=== PATIENT | male | born 1975 | race Caucasian/White ===

== ENCOUNTER 2017-01-27 08:00 | Outpatient (CLI) | payer BC, OTHER | END 2017-01-27 08:01 | disposition home or self-care (01) | DX: R10.9 Unspecified abdominal pain (principal) ==

== ENCOUNTER 2017-01-27 18:18 | Outpatient (CLI) | payer OTHER | END 2017-01-27 18:19 | disposition home or self-care (01) | DX: R10.9 Unspecified abdominal pain (principal) ==

== ENCOUNTER 2019-05-02 19:27 | Emergency (ER) | payer BC, OTHER ==
--- NOTE | 2019-05-02 20:05 | ED Physician Documentation ---
PD HPI DYSPNEA - Stated complaint Stated Complaint: SOA/LIGHTHEADED - Chief complaint Chief Complaint: Allergic Rx - History obtained from History obtained from: Patient - History of Present Illness Timing - onset: How many hours ago (1), Today Timing - onset during: Other (eating at Portuguese restaurant. Started to feel some lightheaded, chest tightness, and feeling oflump in throat/dyspnea. No feeling of tongue nor lip swelling, nor itching/rash. Had had milder similar episodes a few times in past few weeks, onl once timed with eating Portuguese food, but was similar character, less severe. Patient took Benadryl and is feeling slowly better.) Timing - details: Abrupt onset, Still present (but is lessening) Inciting event(s): Allergic rxn/anaphylaxis (he feels it is allergic reaction) Improved by: Benadryl Associated symptoms: Chest pain / discomfort. No: Fever, Cough, Wheezing, Palpitations Similar symptoms before: No diagnosis (similar symptoms briefly in the past few weeks. Brief.) Recently seen: Clinic (routine labs about 3 months ago at [facility]. Had been on BP med in past but not for 6 months or so.) Review of Systems Constitutional: denies: Fever, Chills Nose: denies: Rhinorrhea / runny nose, Congestion Throat: denies: Sore throat Cardiac: reports: Chest pain / pressure. denies: Palpitations, Pedal edema, Calf pain Respiratory: reports: Dyspnea. denies: Cough Musculoskeletal: denies: Neck pain, Back pain, Extremity swelling Neurologic: denies: Focal weakness, Numbness, Headache PD PAST MEDICAL HISTORY - Past Medical History Cardiovascular: Hypertension Respiratory: None Neuro: None Endocrine/Autoimmune: None - Present Medications Home Medications: Ambulatory Orders Medication Instructions Recorded Confirmed EPINEPHrine [Epinephrine] 0.3 mg IJ ONCE PRN #1 auto.injct 05/02/19 Losartan Potassium 100 mg PO DAILY #30 tablet 05/02/19 dexAMETHasone [Decadron] 4 mg PO DAILY #5 tablet 05/02/19 - Allergies Allergies/Adverse Reactions: Allergies Allergy/AdvReac Type Severity Reaction Status Date / Time codeine AdvReac Unknown Verified 05/02/19 19:39 PD ED PE NORMAL - Vitals Vital signs reviewed: Yes (BP elevated) - General General: Alert and oriented X 3, No acute distress, Well developed/nourished - HEENT HEENT: No: Pharynx benign (tongue and lips are okay. Minimal uvular edema. Normal voice and swallowing. ) - Neck Neck: Supple, no meningeal sign, No adenopathy - Cardiac Cardiac: RRR, No murmur - Respiratory Respiratory: Clear bilaterally - Back Back: No CVA TTP - Derm Derm: Normal color, Warm and dry - Extremities Extremities: No tenderness to palpate, No edema, No calf tenderness / cord - Neuro Neuro: Alert and oriented X 3, cushion mat maker 2-12 intact, No motor deficit, No sensory deficit, Normal speech Results - Vitals Vitals: Vital Signs - 24 hr 05/02/19 05/02/19 05/02/19 19:37 19:53 21:21 Temperature 36.6 C Heart Rate 85 86 88 Respiratory 19 18 18 Rate Blood Pressure 222/126 H 193/121 H 163/114 H O2 Saturation 97 96 98 Oxygen O2 Source Room air PD MEDICAL DECISION MAKING - ED course Complexity details: considered differential (The patient's symptoms do sound like an allergic reaction given the feeling of dyspnea and swelling in his throat. Is not clear what the food trigger was. He has had several's lesser episodes over the last few months. Is not on any blood pressure medicines. He is noted to have significantly high blood pressure here needs to be on antihypertensives. He used to be on blood pressure medicine but had discontinued them on his own a couple of years ago. He had not been to his primary care for a while. We can get baseline labs here. He did have some chest tightness and dyspnea with the episode so can get an EKG just to ensure no stress response or cardiac abnormality in conjunction with the elevated blood pressure.), d/w patient Departure - Departure Disposition: 01 Home, Self Care Clinical Impression: Allergic reaction Qualifiers: Encounter type: initial encounter Qualified Code(s): T78.40XA - Allergy, unspecified, initial encounter Hypertension Qualifiers: Hypertension type: unspecified Qualified Code(s): I10 - Essential (primary) hypertension Condition: Stable Record reviewed to determine appropriate education?: Yes Instructions: ED Allergic Reaction General Other, ED Hypertension Conf Out Of Control Follow-Up: Dorene Jack PA-C [Provider Admit Priv/Credential] - Prescriptions: dexAMETHasone [Decadron] 4 mg PO DAILY #5 tablet EPINEPHrine [Epinephrine] 0.3 mg IJ ONCE PRN #1 auto.injct PRN Reason: Anaphylaxis Losartan Potassium 100 mg PO DAILY #30 tablet Comments: This does sound like an allergic reaction. Hard to tell to what. We gave you a steroid dose here which should last for a day or 2. I would suggest using some steroids daily for the next few days if you have any prolonged reaction. Continue your daily antihistamine. Given the type of reaction you have had and increasing symptoms with them, it would make sense to have an EpiPen with you in case of a severe reaction. Still follow-up with an rural health consultant to determine the cause of the symptoms. Suggest following up with an rural health consultant. You could look for one in network or such through your insurance in the [facility]. Alternatively follow-up with your primary care and get referral that way. Food allergy testing might be appropriate to narrow down the cause. This would be since you have had several episodes similar to this. Your blood pressure is significantly elevated and given your history of hypertension, I would make sense to be back on an antihypertensive medicine. I can write a prescription for you for this and again follow-up with your primary care to trend how your blood pressure is doing. Discharge Date/Time: 05/02/19 21:33
[2019-05-02] MEDS ORDERED: DEXAMETHASONE 10 MG/ML VIAL PO STA (20:18)
[2019-05-02] MEDS ORDERED: CHERRY SYRUP 10 ML UDC PO ONE ×2 (20:18→21:37)
[2019-05-02] MEDS ORDERED: CETIRIZINE 10 MG TABLET PO STA (20:18)
[2019-05-02 21:22] VITALS: BP 163/114
[2019-05-02] MEDS ORDERED: CETIRIZINE 10 MG TABLET ONE (21:36)
[2019-05-02] MEDS ORDERED: DEXAMETHASONE 10 MG/ML VIAL ONE (21:36)
== END 2019-05-02 21:33 | disposition home or self-care (01) ==
LOC: ED 19:27
DX: T78.40XA Allergy, unspecified, initial encounter (principal); I10 Essential (primary) hypertension
CPT/HCPCS: 99283; 99284; A9270; 80053; 83690; 83880; 84484; 85025

== ENCOUNTER 2019-07-19 21:33 | Observation (INO) | payer BC ==
[2019-07-19] MEDS ORDERED: HYDROmorphone 1 MG/ML CARPUJECT IVP STA ×2 (21:47→22:27)
[2019-07-19] MEDS ORDERED: ONDANSETRON 4 MG/2 ML VIAL IVP STA (21:47)
--- NOTE | 2019-07-19 21:51 | ED Physician Documentation ---
<Osmar Balderrama - Last Filed: 07/19/19 21:50> PD HPI ABD PAIN - Stated complaint Stated Complaint: ADB PX - Chief complaint Chief Complaint: Abd Pain - History obtained from History obtained from: Patient - History of Present Illness Timing - onset: Today (44-year-old gentleman with history of hypertension and diverticulitis with rupture necessitating remote exploratory laparotomy presents with upper abdominal pain that started suddenly after eating chicken and rice tonight around 6:30 PM. Pain is severe, mildly better after vomiting. He has had similar milder episodes lately but they were much milder.) Review of Systems Ten Systems: 10 systems reviewed and negative Constitutional: denies: Fever, Chills Cardiac: denies: Chest pain / pressure, Palpitations Respiratory: denies: Dyspnea, Cough PD PAST MEDICAL HISTORY - Past Medical History Cardiovascular: Hypertension Respiratory: None Neuro: None Endocrine/Autoimmune: None - Present Medications Home Medications: Ambulatory Orders Medication Instructions Recorded Confirmed EPINEPHrine [Epinephrine] 0.3 mg IJ ONCE PRN #1 auto.injct 05/02/19 Losartan Potassium 100 mg PO DAILY #30 tablet 05/02/19 dexAMETHasone [Decadron] 4 mg PO DAILY #5 tablet 05/02/19 - Allergies Allergies/Adverse Reactions: Allergies Allergy/AdvReac Type Severity Reaction Status Date / Time codeine AdvReac Unknown Verified 07/19/19 21:35 - Social History Does the pt smoke?: No Smoking Status: Never smoker PD ED PE NORMAL - Vitals Vital signs reviewed: Yes - General General: Alert and oriented X 3, Other (Appears uncomfortable) - HEENT HEENT: PERRL, EOMI - Neck Neck: Supple, no meningeal sign, No bony TTP - Cardiac Cardiac: RRR, No murmur - Respiratory Respiratory: No respiratory distress, Clear bilaterally - Abdomen Abdomen: Normal bowel sounds, Other (Soft but with focal and significant tenderness in the right upper quadrant with positive Phelps sign) - Back Back: No CVA TTP, No spinal TTP - Derm Derm: Normal color, Warm and dry, No rash - Extremities Extremities: No deformity, No tenderness to palpate - Neuro Neuro: Alert and oriented X 3, No motor deficit, No sensory deficit, Normal speech Departure - Departure Disposition: ED Transfer to [facility] Clinical Impression: Cholecystitis Condition: Good <Rosa Lr - Last Filed: 07/20/19 00:43> Results - Vitals Vitals: Vital Signs - 24 hr 07/19/19 07/19/19 07/19/19 21:35 22:38 23:03 Temperature 36.6 C Heart Rate 77 72 70 Respiratory 16 16 18 Rate Blood Pressure 189/90 H 164/106 H O2 Saturation 98 100 98 07/19/19 07/20/19 23:46 00:32 Temperature Heart Rate 80 79 Respiratory 17 16 Rate Blood Pressure 139/91 H 141/97 H O2 Saturation 97 95 Oxygen O2 Source Room air - Labs Labs: Laboratory Tests 07/19/19 07/19/19 22:12 22:12 WBC 11.5 H RBC 5.09 Hgb 15.9 Hct 46.7 MCV 91.7 MCH 31.2 H MCHC 34.0 RDW 12.7 Plt Count 334 MPV 11.0 Neut # (Auto) 7.1 H Lymph # (Auto) 3.0 Avery # (Auto) 1.0 Eos # (Auto) 0.1 Baso # (Auto) 0.1 Absolute Nucleated RBC 0.00 Nucleated RBC % 0.0 Sodium 141 Potassium 3.9 Chloride 102 Carbon Dioxide 28 Anion Gap 11.0 BUN 15 Creatinine 0.9 Estimated GFR (MDRD) 91 Glucose 152 H Calcium 9.7 Total Bilirubin 0.5 AST 24 ALT 30 Alkaline Phosphatase 85 Total Protein 8.2 Albumin 4.3 Globulin 3.8 Albumin/Globulin Ratio 1.1 Lipase 34 PD MEDICAL DECISION MAKING - ED course Complexity details: reviewed results, re-evaluated patient, d/w patient, d/w family, d/w it web development consultant ED course: Patient's white blood cell count was a little elevated. Liver enzymes are normal and a normal lipase. Ultrasound confirms cholecystitis with a normal common bile duct but With gallbladder wall thickening. Patient still has mini mal discomfort with palpation in the right upper quadrant after Toradol and Dilaudid. Case was discussed with Dr. Cain who is on-call for surgery. She requested the patient received Zosyn IV and will be in the morning to perform cholecystectomy. 0041: Within minutes of starting the Zosyn drip the patient started itching and broke out in hives on his face and back. The drip was stopped immediately and he was given Benadryl 25 mg IV. His lungs are clear and he has no swelling in his throat or mouth. Denies difficulty breathing. He will be given Cipro 500 mg plus Flagyl 500 mg IV.
[2019-07-19 22:25] LABS: BASOPHILS # (AUTO) 0.1 10^3/uL (0.0-0.1); BASOPHILS % (AUTO) 0.8 %; EOSINOPHILS # (AUTO) 0.1 10^3/uL (0.0-0.7); EOSINOPHILS % (AUTO) 0.8 %; HGB - HEMOGLOBIN 15.9 g/dL (14.0-18.0); LYMPHOCYTES % (AUTO) 26.2 %; MEAN CORPUSCULAR HEMOGLOBIN 31.2 pg (27.0-31.0); MEAN CORPUSCULAR VOLUME 91.7 fL (80.0-94.0); MONOCYTES % (AUTO) 8.6 %; NEUTROPHILS # (AUTO) 7.1 10^3/uL (1.5-6.6); NEUTROPHILS % (AUTO) 62.3 %; PLT - PLATELET COUNT 334 10^3/uL (130-450); RED BLOOD COUNT 5.09 10^6/uL (4.70-6.10); RED CELL DISTRIBUTION WIDTH 12.7 % (12.0-15.0); WHITE BLOOD COUNT 11.5 x10^3/uL (4.8-10.8)
[2019-07-19] MEDS ORDERED: KETOROLAC 30 MG/ML VIAL IVP STA (22:27)
[2019-07-19 22:47] LABS: ALBUMIN 4.3 g/dL (3.2-5.5); ALBUMIN/GLOBULIN RATIO 1.1 (1.0-2.2); BILIRUBIN,TOTAL 0.5 mg/dL (0.2-1.0); CALCIUM 9.7 mg/dL (8.5-10.3); CREATININE 0.9 mg/dL (0.6-1.2); TOTAL PROTEIN 8.2 g/dL (6.7-8.2)
--- NOTE | 2019-07-19 23:46 | Ultrasound Report ---
Reason: RUQ TTP Procedure Date: 07/19/2019 Accession Number: [id number] / [id number] Procedure: US - Abdomen Limited CPT Code: FULL RESULT: EXAM: ABDOMEN ULTRASOUND LIMITED, RUQ EXAM DATE: 07/19/2019 11:00 PM. CLINICAL HISTORY: RUQ TTP. COMPARISON: None. TECHNIQUE: Real-time scanning was performed with static images obtained. Image quality is degraded by habitus and bowel gas. FINDINGS: Liver: Liver is echogenic, suggestive of infiltration. It measures 18.6 cm. Main portal vein flow: Hepatopetal. Gallbladder: Cholelithiasis. Gallbladder wall thickening, mild, to 3 mm. No definite pericholecystic fluid appreciated. Biliary System: CBD measures 4 mm. No intrahepatic or extrahepatic ductal dilatation. Other: None. IMPRESSION: Cholelithiasis, with mild gallbladder wall thickening, suggestive of acute cholecystitis. Fatty infiltration of the liver. RADIA
[2019-07-20] MEDS ORDERED: PIPERACILLIN/TAZOBACTAM 3.375 GM in SODIUM CHLORIDE 0.9% MINIBAG 100 ML IV STA (00:01)
[2019-07-20] MEDS ORDERED: DEXTROSE 5%-0.45% NACL 1,000 ML IV ONE (00:03)
--- NOTE | 2019-07-20 00:03 | ED Physician Documentation ---
ED Addendum - Addendum Addendum: 07/20/19 00:01 Care was turned over by Dr. Vail. Patient's white blood cell counts mildly elevated and the ultrasound confirms Yani cystitis with gallbladder wall thickening normal common bile duct diameter. He is feeling much better with just minimal tenderness now with palpation in the right upper quadrant. Case was discussed with Dr. Mcknight who is on for surgery and she will be in in the morning to perform cholecystectomy. Patient was given Zosyn IV and remains n.p.o.
[2019-07-20] MEDS ORDERED: diphenhydrAMINE INJ 50 MG/ML VIAL ONE (00:37)
[2019-07-20] MEDS ORDERED: CIPROFLOXACIN 400 MG/200 ML 200 ML IV ONE ×2 (00:42→10:29)
[2019-07-20] MEDS ORDERED: metroNIDAZOLE 500 MG/100 ML 500 MG/100 ML BAG IV ONE (00:43)
[2019-07-20] MEDS ORDERED: HYDROmorphone 1 MG/ML CARPUJECT IVP STA ×2 (04:10→08:42)
[2019-07-20] MEDS ORDERED: levoFLOXacin 750 MG/150 ML 750 MG/150 ML BAG IV SCH (06:00)
[2019-07-20] MEDS ORDERED: SODIUM CHLORIDE 0.9% 1,000 ML IV ONE (08:43)
--- NOTE | 2019-07-20 09:36 | ANESTHESIA ---
Pre-Anesthesia VS, & Labs - Diagnosis cholecystitis - Procedure lap rob Vital Signs: Temp Pulse Resp BP Pulse Ox 36.6 C 74 18 143/101 H 98 07/19/19 21:35 07/20/19 08:36 07/20/19 08:36 07/20/19 08:36 07/20/19 08:36 Height 6 ft 1 in Weight (kg) 137.6 kg Body Mass Index 40.0 - NPO >8 hours - Lab Results Current Lab Results: Laboratory Tests 07/19/19 22:12: Sodium 141, Potassium 3.9, Chloride 102, Carbon Dioxide 28, Anion Gap 11.0, BUN 15, Creatinine 0.9, Estimated GFR (MDRD) 91, Glucose 152 H, Calcium 9.7, Total Bilirubin 0.5, AST 24, ALT 30, Alkaline Phosphatase 85, Total Protein 8.2, Albumin 4.3, Globulin 3.8, Albumin/Globulin Ratio 1.1, Lipase 34 07/19/19 22:12: WBC 11.5 H, RBC 5.09, Hgb 15.9, Hct 46.7, MCV 91.7, MCH 31.2 H, MCHC 34.0, RDW 12.7, Plt Count 334, MPV 11.0, Neut # (Auto) 7.1 H, Lymph # (Auto) 3.0, Ellis # (Auto) 1.0, Eos # (Auto) 0.1, Baso # (Auto) 0.1, Absolute Nucleated RBC 0.00, Nucleated RBC % 0.0 Lab results reviewed: Yes Fish Bones: 07/19/19 22:12 07/19/19 22:12 Home Medications and Allergies Active Medications Dextrose/Sodium Chloride (D5.45ns) 1,000 mls @ 100 mls/hr IV .Q10H ONE Stop: 07/20/19 10:02 Last Admin: 07/20/19 04:21 Dose: 100 mls/hr Sodium Chloride (Normal Saline 0.9%) 1,000 mls @ 250 mls/hr IV .Q4H ONE Stop: 07/20/19 12:42 Allergies/Adverse Reactions: Allergies Allergy/AdvReac Type Severity Reaction Status Date / Time piperacillin [From Zosyn] Allergy Hives Verified 07/20/19 05:33 tazobactam [From Zosyn] Allergy Hives Verified 07/20/19 05:33 codeine AdvReac Unknown Verified 07/19/19 21:35 Anes History & Medical History - Anesthetic History Anesthesia Complications: reports: No previous complications - Medical History Cardiovascular: reports: Hypertension, High cholesterol Pulmonary: reports: None, Asthma Gastrointestinal: reports: Diverticulitis Neuro: reports: None Endocrine/Autoimmune: reports: None Smoking Status: Former smoker Exam General: Alert Mouth Opening: Greater than 4 Fingerbreadths Neck Mobility: Normal Mallampati classification: II Thyromental Distance: 4-6 cm Respiratory: Lungs clear Cardiovascular: Regular rate Plan Anesthesia Type: General Consent for Procedure(s) Verified and Reviewed: Yes Code Status: Attempt Resuscitation ASA classification: 3-Severe systemic disease Is this case an emergency?: Yes
[2019-07-20] MEDS ORDERED: BUPIVACAINE 0.5% PF 10 ML VIAL ONE (09:37)
[2019-07-20] MEDS ORDERED: LIDOCAINE MPF 1%-EPI 1:200000 30 ML VIAL ONE (09:37)
[2019-07-20] MEDS ORDERED: PROPOFOL 1000 MG/100 ML 100 ML IV ONE ×2 (09:59→10:22)
[2019-07-20] MEDS ORDERED: ROCURONIUM 50 MG/5 ML VIAL IVP ONE (10:22)
[2019-07-20] MEDS ORDERED: LABETALOL 5 MG/1 ML 20 ML MDV IVP ONE (10:22)
[2019-07-20] MEDS ORDERED: fentaNYL 250 MCG/5 ML VIAL IVP ONE (10:22)
[2019-07-20] MEDS ORDERED: LACTATED RINGERS 1,000 ML IV ONE ×3 (10:22→14:47)
[2019-07-20] MEDS ORDERED: DEXAMETHASONE 4 MG/ML VIAL IVP ONE (10:22)
[2019-07-20] MEDS ORDERED: ONDANSETRON 4 MG/2 ML VIAL IVP ONE (10:22)
[2019-07-20] MEDS ORDERED: GLYCOPYRROLATE 1 MG/5 ML VIAL IVP ONE (10:22)
[2019-07-20] MEDS ORDERED: MIDAZOLAM 2 MG/2 ML VIAL IVP ONE (10:22)
[2019-07-20] MEDS ORDERED: NEOSTIGMINE 1 MG/1 ML 10 ML MDV IVP ONE (10:22)
[2019-07-20] MEDS ORDERED: PROPOFOL 200 MG/20 ML VIAL IVP ONE (10:22)
[2019-07-20] MEDS ORDERED: metroNIDAZOLE 500 MG/100 ML 500 MG/100 ML BAG ONE (10:30)
--- NOTE | 2019-07-20 10:33 | HISTORY & PHYSICAL EXAMINATION ---
HPI - Admitted From Admitted from: ED - History Obtained From Records Reviewed: RN notes reviewed History obtained from: Patient, Family Exam limitations: No limitations - History of Present Illness Severity at the worst: reports: Mild Pain Quality: reports: Dull, Aching Context-Pain started w/: reports: Eating Timing: reports: Gradual onset Duration: reports: Days: (5) Improved with: reports: Nothing Worsened by: reports: Eating Associated symptoms: reports: Nausea HPI Comment/Other: Gentleman presented to the ED with several days of dull right upper quadrant pain that became acutely worse after eating chicken and rice last evening. He says he felt discomfort there all week but didn't worry much about it. He was seen in the ED and diagnosed with acute cholecystitis. He has received antibiotics over night and a new PCN allergy was discovered. Currently he is without pain and a little hungry. PMH/PSH - Past Medical History Cardiovascular: positive: Hypertension, High cholesterol Respiratory: positive: None, Asthma Neuro: positive: None Endocrine/Autoimmune: positive: None GI: positive: Diverticulitis MRSA Hx?: No Social & Family Hx - Social History Does the pt smoke?: No Smoking Status: Former smoker Meds/Allgy - Home Medications Home Medications: Ambulatory Orders Medication Instructions Recorded Confirmed EPINEPHrine [Epinephrine] 0.3 mg IJ ONCE PRN #1 auto.injct 05/02/19 Losartan Potassium 100 mg PO DAILY #30 tablet 05/02/19 dexAMETHasone [Decadron] 4 mg PO DAILY #5 tablet 05/02/19 - Allergies Allergies/Adverse Reactions: Allergies Allergy/AdvReac Type Severity Reaction Status Date / Time piperacillin [From Zosyn] Allergy Hives Verified 07/20/19 05:33 tazobactam [From Zosyn] Allergy Hives Verified 07/20/19 05:33 codeine AdvReac Unknown Verified 07/19/19 21:35 Review of Systems - Constitutional Constitutional: denies: Fever, Chills - Eyes Eyes: denies: Pain, Irritation, Amaurosis, Blurred vision - Ears, Nose & Throat Ears, Nose & Throat: denies: Ear pain, Hearing loss, Hearing aids, Tinnitus, Vertigo - Cardiovascular Cariovascular: denies: Irregular heart rate, Palpitations, Chest pain, Edema, Lightheadedness, Syncope - Respiratory Respiratory: denies: Cough, Wheezing - Gastrointestinal Gastrointestinal: reports: Abdominal pain. denies: Abdominal distention, Cons tipation, Diarrhea, Black stools, Bloody stools - Genitourinary Genitourinary: denies: Dysuria, Frequency, Urgency - Musculoskeletal Musculoskeletal: denies: Muscle pain - Integumentary Integumentary: denies: Rash - Neurological Neurological: denies: General weakness, Focal weakness Exam - Vital Signs Reviewed Vital Signs: Yes Vital Signs: Vital Signs x48h Pulse Resp BP Pulse Ox 07/20/19 08:36 74 18 143/101 H 98 07/20/19 05:39 66 16 128/89 H 96 07/20/19 03:07 59 L 16 122/67 96 - Physical Exam General Appearance: positive: No acute distress, Alert Eyes Bilateral: positive: Normal inspection, PERRL, EOMI ENT: positive: ENT inspection nml, Pharynx nml, No signs of dehydration Neck: positive: Nml inspection, Thyroid nml, No JVD, Trachea midline. negative: Thyromegaly, Lymphadenopathy (R), Lymphadenopathy (L) Respiratory: positive: Chest non-tender, No respiratory distress, Breath sounds nml Cardiovascular: positive: Regular rate & rhythm, No murmur, No gallop Peripheral Pulses: positive: 0 Abdomen: positive: Non-tender, Nml bowel sounds, No distention, Tenderness (Mini mal right upper quadrant tenderness to palpation), Other (Very large midline incision that has healed by secondary intention) Back: positive: Nml inspection. negative: CVA tenderness (R), CVA tenderness (L) Skin: positive: Color nml, No rash, Warm, Dry Extremities: positive: Non-tender, Nml appearance, No pedal edema Neurologic/Psychiatric: positive: Oriented x3, CN's nml (2-12) Results - Lab Results Fish Bones: 07/19/19 22:12 07/19/19 22:12 Other Lab Results: Lab Results x24hrs 07/19/19 07/19/19 Range/Units 22:12 22:12 WBC 11.5 H (4.8-10.8) x10^3/uL RBC 5.09 (4.70-6.10) 10^6/uL Hgb 15.9 (14.0-18.0) g/dL Hct 46.7 (42.0-52.0) % MCV 91.7 (80.0-94.0) fL MCH 31.2 H (27.0-31.0) pg MCHC 34.0 (32.0-36.0) g/dL RDW 12.7 (12.0-15.0) % Plt Count 334 (130-450) 10^3/uL MPV 11.0 (7.4-11.4) fL Neut # (Auto) 7.1 H (1.5-6.6) 10^3/uL Lymph # (Auto) 3.0 (1.5-3.5) 10^3/uL Harper # (Auto) 1.0 (0.0-1.0) 10^3/uL Eos # (Auto) 0.1 (0.0-0.7) 10^3/uL Baso # (Auto) 0.1 (0.0-0.1) 10^3/uL Absolute Nucleated RBC 0.00 x10^3/uL Nucleated RBC % 0.0 /100WBC Sodium 141 (135-145) mmol/L Potassium 3.9 (3.5-5.0) mmol/L Chloride 102 (101-111) mmol/L Carbon Dioxide 28 (21-32) mmol/L Anion Gap 11.0 (6-13) BUN 15 (6-20) mg/dL Creatinine 0.9 (0.6-1.2) mg/dL Estimated GFR (MDRD) 91 (>89) Glucose 152 H (70-100) mg/dL Calcium 9.7 (8.5-10.3) mg/dL Total Bilirubin 0.5 (0.2-1.0) mg/dL AST 24 (10-42) IU/L ALT 30 (10-60) IU/L Alkaline Phosphatase 85 (42-121) IU/L Total Protein 8.2 (6.7-8.2) g/dL Albumin 4.3 (3.2-5.5) g/dL Globulin 3.8 (2.1-4.2) g/dL Albumin/Globulin Ratio 1.1 (1.0-2.2) Lipase 34 (22-51) U/L - Diagnostic Imaging Results Diagnostic Imaging Results: positive: Prelim report reviewed, Read contemporaneously Diagnostic Imaging Results Comments: Mild acute cholecystitis Impression/Plan - Problem List Problem List: Acute cholecystitis - Pain is under control currently. We have discussed the risks and benefits of cholecystectomy. The patient understands that he has a greater than average risk of complications or conversion to an open procedure due to his history of peritonitis and open laparotomy. He has expressed an und erstanding of this and a desire to have the procedure. We will begin with a laparoscopic approach and hope to complete it that way.
--- NOTE | 2019-07-20 11:45 | OPERATIVE REPORT ---
Operative Report - General Planned Procedure: Cholecystectomy - Laparoscopic or Open Pre-Op Diagnosis: Acute cholecystitis Procedure Performed: Laparoscopic cholecystectomy Post Op Diagnosis: Acute cholecystitis - Procedure Note Primary Surgeon: Payton Anesthesia Provider: DEMETRIO العلي Anesthesia Technique: General ET tube, Local Pathology: Gall bladder in formalin to pathology IV Fluids (mL): 700 Estimated Blood Loss (mL): 100 Drain/Tube Type: Yousuf drain (19 Australian in the gall bladder fossa) Findings: Acute cholecystitis with vidal purulence from the gall bladder Complications: None apparent - Other Other Information/Narrative: After obtaining informed consent, the patient is brought to the operating room and placed in the supine position on the operating table. Following successful induction of general endotracheal anesthesia, appropriate padding of all bony prominences, and placement of appropriate monitors, the abdomen is prepped and drapped in the standard surgical fashion.A timeout was held per SCOAP protocol. All elements of the surgical safety checklist were followed before, during, and after the procedure. Due to the presence of a large midline incision that healed by secondary intention, I elected to make my incision to the left of the umbilicus in a undisturbed portion of the abdomen. This area was infiltrated with local an esthetic and incision was created and carried down through the skin and subcutaneous tissue to the fascia below. A Liberal clamp was used to grasp the fascia and 2-0 Vicryl retention sutures were placed on either side of the planned incision. A 1 cm incision was then created in the fascia and this was carried bluntly through the into the peritoneum.A 10 mm blunt Brush balloon trocar was placed in the abdominal cavity and it was insufflated to 15 mmHg pressure.The patient was now placed in reverse Trendelenburg position with the left side rotated toward the floor.We were fortunately able to see through a small window in the intra-abdominal adhesive process. We were able to visualize the gallbladder as well as enough free peritoneal surface to perform the operation. An area was localized in the right upper quadrant and an incision created for placement of a 5 mm trocar. A second was placed just medial and inferior to the first. We were able to identify a free spot in the upper midli ne where we could place a third trocar. The fundus of the gallbladder was grasped and elevated up over the liver. There was significant omental adhesions to the body of the gallbladder. These were taken down bluntly. Significant nonspecific ooze was noted from every raw surface. The gallbladder itself was noted to be discolored to a tariq-green appearance, very edematous and thin- walled. We were able to identify the cholecysto hepatoduodenal ligament and then were carefully able to identify the cystic duct as it came directly off of the body of the gallbladder. Due to the inflammatory process in the ana cristina hepatis, as well as the generalized issues, no attempt was made to dissect deeper into the ana cristina to get a clear view of the common duct. We stayed up on the gallbladder itself and avoided stirring up any difficulty in the surrounding area. The cystic duct was clipped 3 times proximally once distally and divided. The artery was identified just superior and medial to the duct and it was clipped once proximally once distally and divided. The gallbladder was then liberated from its bed in the liver using Bovie cautery. Once it was completely free, it was placed in an Endo Catch device and removed via the umbilical port. The abdomen was irrigated with 2 L of warm saline solution and aspirated free of all fluid and particulate matter.Due to the generalized issues as well as the degree of contamination of the gallbladder, I elected to place a 19 Australian Yousuf drain in the gallbladder fossa. This was brought out in the right upper quadrant and sewn into place. The wounds were then all checked for hemostasis. The trochars were removed under direct vision and the abdomen desufflated. The largest incision lateral to the umbilicus was closed with 0 Vicryl retention s utures in the fascia and Monocryl was placed in all the skin incisions. All sponge, needle, and instrument counts were correct at the conclusion of the case. The patient was allowed to awaken from anesthesia without difficulty and taken to the postanesthesia care unit in good condition.
[2019-07-20] MEDS ORDERED: ONDANSETRON 4 MG/2 ML VIAL IVP PRN (11:53)
[2019-07-20] MEDS ORDERED: oxyCODONE 5 MG TABLET PO PRN (11:53)
[2019-07-20] MEDS ORDERED: ACETAMINOPHEN 325 MG TABLET PO PRN (11:53)
[2019-07-20] MEDS: HYDROmorphone 1 MG/ML CARPUJECT ONE ×2 (12:33→12:46)
[2019-07-20] MEDS ORDERED: ACETAMINOPHEN 1,000 MG/100 ML 100 ML IV ONE (13:11)
[2019-07-20] MEDS ORDERED: ACETAMINOPHEN 500 MG TABLET PO PRN (14:34)
[2019-07-20] MEDS: metroNIDAZOLE 500 MG/100 ML 500 MG/100 ML BAG IV SCH ×2 (14:44→22:10)
[2019-07-20] MEDS: LACTATED RINGERS 1,000 ML IV SCH ×2 (14:44→18:58)
[2019-07-20] MEDS: PANTOPRAZOLE 40 MG VIAL IVP SCH (14:44)
[2019-07-20] MEDS: SODIUM CHLORIDE FLUSH 0.9% 10 ML SYRINGE IVP PRN (14:48)
[2019-07-20] MEDS: HYDROmorphone 0.5 MG/0.5 ML SYRINGE IVP PRN ×5 (14:58→23:53)
[2019-07-20] MEDS: SODIUM CHLORIDE FLUSH 0.9% 10 ML SYRINGE IVP SCH (15:30)
[2019-07-20] MEDS ORDERED: LIDOCAINE JELLY 2% 5 ML TUBE TOP ONE (18:28)
[2019-07-20] MEDS ORDERED: TAMSULOSIN 0.4 MG CAPSULE PO SCH (18:30)
[2019-07-21] MEDS: SODIUM CHLORIDE FLUSH 0.9% 10 ML SYRINGE IVP SCH ×3 (00:19→18:04)
[2019-07-21] MEDS: LACTATED RINGERS 1,000 ML IV SCH (04:27)
[2019-07-21] MEDS: HYDROmorphone 0.5 MG/0.5 ML SYRINGE IVP PRN ×6 (04:28→18:11)
[2019-07-21] MEDS: metroNIDAZOLE 500 MG/100 ML 500 MG/100 ML BAG IV SCH ×3 (05:16→21:02)
[2019-07-21 05:55] LABS: BASOPHILS % (AUTO) 0.3 %; EOSINOPHILS % (AUTO) 0.2 %; HGB - HEMOGLOBIN 12.9 g/dL (14.0-18.0); LYMPHOCYTES # (AUTO) 2.5 10^3/uL (1.5-3.5); LYMPHOCYTES % (AUTO) 19.1 %; MEAN CORPUSCULAR HEMOGLOBIN 30.4 pg (27.0-31.0); MEAN CORPUSCULAR HGB CONC 32.6 g/dL (32.0-36.0); MEAN CORPUSCULAR VOLUME 93.2 fL (80.0-94.0); MEAN PLATELET VOLUME 11.3 fL (7.4-11.4); MONOCYTES # (AUTO) 1.2 10^3/uL (0.0-1.0); MONOCYTES % (AUTO) 8.9 %; NEUTROPHILS # (AUTO) 9.4 10^3/uL (1.5-6.6); NEUTROPHILS % (AUTO) 70.6 %; PLT - PLATELET COUNT 265 10^3/uL (130-450); RED BLOOD COUNT 4.25 10^6/uL (4.70-6.10); RED CELL DISTRIBUTION WIDTH 13.2 % (12.0-15.0); WHITE BLOOD COUNT 13.3 x10^3/uL (4.8-10.8)
[2019-07-21 06:11] LABS: ALBUMIN 3.5 g/dL (3.2-5.5); ALBUMIN/GLOBULIN RATIO 1.3 (1.0-2.2); BILIRUBIN,TOTAL 0.9 mg/dL (0.2-1.0); CALCIUM 8.5 mg/dL (8.5-10.3); CREATININE 0.7 mg/dL (0.6-1.2); TOTAL PROTEIN 6.2 g/dL (6.7-8.2)
[2019-07-21] MEDS: PANTOPRAZOLE 40 MG VIAL IVP SCH (06:21)
[2019-07-21] MEDS: levoFLOXacin 750 MG/150 ML 750 MG/150 ML BAG IV SCH (06:22)
[2019-07-21] MEDS: SODIUM CHLORIDE FLUSH 0.9% 10 ML SYRINGE IVP PRN ×5 (10:44→23:12)
[2019-07-21] MEDS ORDERED: TAMSULOSIN 0.4 MG CAPSULE PO SCH (13:00)
--- NOTE | 2019-07-21 17:37 | PROVIDER PROGRESS NOTE ---
Subjective - General Admit Date: 07/20/19 Procedure Date: 07/20/19 Post Op Days: 1 Procedure Performed: Laparoscopic cholecystectomy - Review of Systems Wound/Incisions: positive: Healing well Drain Type: Yousuf Drain Output Description: serous General: positive: Fatigue. negative: Fever HEENT: positive: No symptoms Pulmonary: positive: No symptoms Cardiovascular: positive: No symptoms, Other (Feels gas and bowel activity but has not had a bowel movement) Gastrointestinal: positive: Abdominal pain. negative: Flatus Genitourinary: positive: Retention (Catheter in place) Musculoskeletal: positive: No symptoms Skin: positive: No symptoms Objective - Patient Data Vital Signs: Vital Signs x48h Temp Pulse Resp BP Pulse Ox 07/21/19 15:44 36.4 C L 71 20 148/81 H 94 07/21/19 14:00 36.5 C 74 20 145/80 H 95 Weight: Weight 07/19/19 07/20/19 07/21/19 23:59 23:59 23:59 Weight (kg) 137.6 kg 137.6 kg Intake & Output: Intake and Output Totals x24h 07/19/19 07/20/19 07/21/19 23:59 23:59 23:59 Intake Total 2476.666 2048.333 Output Total 1340 4698 Balance 1136.666 -2649.667 - Lab Results Lab Results: 07/21/19 05:15 07/21/19 05:15 Other Lab Results: Lab Results x24hrs 07/21/19 07/21/19 Range/Units 05:15 05:15 WBC 13.3 H (4.8-10.8) x10^3/uL RBC 4.25 L (4.70-6.10) 10^6/uL Hgb 12.9 L (14.0-18.0) g/dL Hct 39.6 L (42.0-52.0) % MCV 93.2 (80.0-94.0) fL MCH 30.4 (27.0-31.0) pg MCHC 32.6 (32.0-36.0) g/dL RDW 13.2 (12.0-15.0) % Plt Count 265 (130-450) 10^3/uL MPV 11.3 (7.4-11.4) fL Neut # (Auto) 9.4 H (1.5-6.6) 10^3/uL Lymph # (Auto) 2.5 (1.5-3.5) 10^3/uL [place] # (Auto) 1.2 H (0.0-1.0) 10^3/uL Eos # (Auto) 0.0 (0.0-0.7) 10^3/uL Baso # (Auto) 0.0 (0.0-0.1) 10^3/uL Absolute Nucleated RBC 0.00 x10^3/uL Nucleated RBC % 0.0 /100WBC Sodium 137 (135-145) mmol/L Potassium 4.0 (3.5-5.0) mmol/L Chloride 103 (101-111) mmol/L Carbon Dioxide 26 (21-32) mmol/L Anion Gap 8.0 (6-13) BUN 13 (6-20) mg/dL Creatinine 0.7 (0.6-1.2) mg/dL Estimated GFR (MDRD) 122 (>89) Glucose 126 H (70-100) mg/dL Calcium 8.5 (8.5-10.3) mg/dL Total Bilirubin 0.9 (0.2-1.0) mg/dL AST 69 H (10-42) IU/L ALT 60 (10-60) IU/L Alkaline Phosphatase 65 (42-121) IU/L Total Protein 6.2 L (6.7-8.2) g/dL Albumin 3.5 (3.2-5.5) g/dL Globulin 2.7 (2.1-4.2) g/dL Albumin/Globulin Ratio 1.3 (1.0-2.2) - Current Medications Current Medications: Current Medications Generic Name Dose Route Start Last Admin Trade Name Freq PRN Reason Stop Dose Admin Hydromorphone HCl 0.5 mg 07/20/19 11:53 07/21/19 15:34 Dilaudid Inj Syringe IVP 0.5 mg Q2H PRN Administration PAIN Lactated Ringer's 1,000 mls @ 100 mls/hr 07/20/19 12:00 07/21/19 04:27 Lr IV 100 mls/hr .Q10H ARPAN Administration Metronidazole 500 mg in 100 mls @ 100 mls/hr 07/20/19 14:00 07/21/19 14:51 Flagyl 500 Mg/100 Ml IV 100 mls/hr Q8HR ARPAN Administration Levofloxacin 750 mg in 150 mls @ 100 mls/hr 07/21/19 06:00 07/21/19 11:42 Levaquin 750 Mg/150 Ml IV Infused Q24H ARPAN Infusion Ondansetron HCl 4 mg 07/20/19 11:53 07/20/19 12:33 Zofran Inj IVP 4 mg Q6H PRN Administration Nausea / Vomiting Pantoprazole Sodium 40 mg 07/20/19 12:00 07/21/19 06:21 Protonix IVP 40 mg QDAC ARPAN Administration Sodium Chloride 10 ml 07/20/19 17:00 07/21/19 08:15 Normal Saline Flush 0.9% IVP 10 ml 0100,0900,1700 ARPAN Administration Sodium Chloride 10 ml 07/20/19 11:53 07/21/19 13:01 Normal Saline Flush 0.9% IVP 10 ml PRN PRN Administration NEEDED PER PROVIDER ORDERS Tamsulosin HCl 0.4 mg 07/21/19 13:00 07/21/19 13:51 Flomax PO 0.4 mg DAILY ARPAN Administration - Physical Exam Wound/Incisions: positive: Healing well General Appearance: positive: No acute distress, Anxious Eyes Bilateral: positive: Normal inspection, EOMI ENT: positive: ENT inspection nml, Pharynx nml, No signs of dehydration Neck: positive: Nml inspection, Trachea midline Respiratory: positive: Chest non-tender, Breath sounds nml Cardiovascular: positive: Regular rate & rhythm, No murmur Abdomen: positive: Other (Drain with serous drainage. No evidence of bile. Removed without difficulty. Other wounds are clean and dry. Active bowel sounds. Appropriately tender.) Skin: positive: Color nml Neurologic/Psychiatric: positive: Oriented x3, CN's nml (2-12) ABX Reporting Has patient been on IV antibiotics over the past 48 hours?: Yes Impression/Plan - Problem List Problem List: POD #1 after lap rob with acute urinary retention. Patient was uncomfortable with the plan to remove the catheter. Ex reports he has had urinary frequency for several years. He is on Flomax bid now. Plan is to continue that and to remove the catheter in the AM with a voiding trial. If it doesnt work, would plan to send him home with a catheter and plans to follow up with a urologist in the [place] or [place] area. The family sees Dr. Kim in [place] and they live in [place]. Admonished the patient to get out of bed and walk this evening. He was up with his son in the halls before I finished documentation.
[2019-07-21] MEDS: DOCUSATE SODIUM 250 MG CAPSULE PO SCH (18:04)
[2019-07-21] MEDS ORDERED: SODIUM CHLORIDE 0.65% NASAL SPRAY NAS PRN (18:07)
[2019-07-21] MEDS: TAMSULOSIN 0.4 MG CAPSULE PO SCH (20:54)
[2019-07-22] MEDS: levoFLOXacin 750 MG/150 ML 750 MG/150 ML BAG IV SCH (05:24)
[2019-07-22] MEDS: PANTOPRAZOLE 40 MG VIAL IVP SCH (07:00)
[2019-07-22] MEDS: SODIUM CHLORIDE FLUSH 0.9% 10 ML SYRINGE IVP SCH ×2 (07:01→08:07)
[2019-07-22] MEDS: metroNIDAZOLE 500 MG/100 ML 500 MG/100 ML BAG IV SCH (07:04)
[2019-07-22] MEDS: TAMSULOSIN 0.4 MG CAPSULE PO SCH (07:44)
[2019-07-22] MEDS: DOCUSATE SODIUM 250 MG CAPSULE PO SCH (07:46)
--- NOTE | 2019-07-22 07:56 | PROVIDER PROGRESS NOTE ---
Subjective - General Admit Date: 07/20/19 Procedure Date: 07/20/19 Post Op Days: 2 Procedure Performed: Laparoscopic cholecystectomy - Review of Systems Wound/Incisions: positive: Healing well Drain Type: removed yesterday General: negative: Fever HEENT: positive: No symptoms Pulmonary: positive: No symptoms Cardiovascular: positive: No symptoms Gastrointestinal: positive: Abdominal pain (minimal, no narcotics overnight), Flatus Genitourinary: positive: Retention (Catheter in place; started on flomax yest) Musculoskeletal: positive: No symptoms Skin: positive: No symptoms Objective - Patient Data Reviewed Vital Signs: Yes Vital Signs: Vital Signs x48h Temp Pulse Resp BP Pulse Ox 07/22/19 00:20 36.5 C 77 16 155/97 H 92 Weight: Weight 07/20/19 07/21/19 07/22/19 23:59 23:59 23:59 Weight (kg) 137.6 kg Intake & Output: Intake and Output Totals x24h 07/20/19 07/21/19 07/22/19 23:59 23:59 23:59 Intake Total 2476.666 4285.333 450 Output Total 1340 4798 2400 Balance 1136.666 -512.667 -1950 - Lab Results Lab Results: 07/21/19 05:15 07/21/19 05:15 - Current Medications Current Medications: Current Medications Generic Name Dose Route Start Last Admin Trade Name Freq PRN Reason Stop Dose Admin Acetaminophen 1,000 mg 07/20/19 14:34 07/21/19 18:37 Tylenol PO 1,000 mg Q4HR PRN Administration PAIN Docusate Sodium 250 mg 07/21/19 17:45 07/22/19 07:46 Colace 250mg Capsule PO 250 mg DAILY ARPAN Administration Hydromorphone HCl 0.5 mg 07/20/19 11:53 07/21/19 18:11 Dilaudid Inj Syringe IVP 0.5 mg Q2H PRN Administration PAIN Metronidazole 500 mg in 100 mls @ 100 mls/hr 07/20/19 14:00 07/22/19 07:04 Flagyl 500 Mg/100 Ml IV 100 mls/hr Q8HR ARPAN Administration Levofloxacin 750 mg in 150 mls @ 100 mls/hr 07/21/19 06:00 07/22/19 07:04 Levaquin 750 Mg/150 Ml IV Infused Q24H ARPAN Infusion Ondansetron HCl 4 mg 07/20/19 11:53 07/20/19 12:33 Zofran Inj IVP 4 mg Q6H PRN Administration Nausea / Vomiting Pantoprazole Sodium 40 mg 07/20/19 12:00 07/22/19 07:00 Protonix IVP 40 mg QDAC ARPAN Administration Sodium Chloride 10 ml 07/20/19 17:00 07/22/19 07:01 Normal Saline Flush 0.9% IVP 10 ml 0100,0900,1700 ARPAN Administration Sodium Chloride 10 ml 07/20/19 11:53 07/21/19 23:12 Normal Saline Flush 0.9% IVP 10 ml PRN PRN Administration NEEDED PER PROVIDER ORDERS Sodium Chloride 2 sprays 07/21/19 18:07 07/21/19 18:37 Bivins JACKIE 1 spr Q1H PRN Administration Nasal Congestion Tamsulosin HCl 0.4 mg 07/21/19 21:00 07/22/19 07:44 Flomax PO 0.4 mg BID ARPAN Administration - Physical Exam Wound/Incisions: positive: Healing well General Appearance: positive: No acute distress, Alert Eyes Bilateral: positive: Conjunctivae nml, No scleral icterus Respiratory: positive: No respiratory distress Abdomen: positive: Tenderness (minimal; incisions healing well) Skin: positive: Color nml, No rash, Warm, Dry. negative: Cyanosis Extremities: positive: Non-tender, No pedal edema. negative: Calf tenderness Neurologic/Psychiatric: positive: Oriented x3 ABX Reporting Has patient been on IV antibiotics over the past 48 hours?: Yes Impression/Plan - Problem List Problem List: Doing well PO Day 2 s/p lap rob, except for urinary retention. Plan: started on Flomax last night; d/c jama today and voiding trial. If unsuccessful, will send home today with jama catheter, and will need urology f/u; ow home without catheter, usual precautions, f/u with Dr. Cain, next week; elective urology f/u for chronic urinary sx.
[2019-07-22] MEDS ORDERED: ACETAMINOPHEN 500 MG TABLET PO PRN (08:01)
[2019-07-22] MEDS ORDERED: IBUPROFEN 600 MG TABLET PO PRN (08:01)
[2019-07-22 13:12] VITALS: BP 150/96
--- NOTE | 2019-07-25 14:45 | DISCHARGE SUMMARY ---
"Discharge Summary Admit Date: 07/20/19 Discharge Date: 07/22/19 Discharging Provider: Dr. Cook Code Status: Attempt Resuscitation Condition at Discharge: Good Discharge Disposition: 01 Home, Self Care Discharge Facility Name: [facility] - DIAGNOSES Admission Diagnoses: acute calculous cholecystitis Discharge Diagnoses with Status of Each Condition: acute cholecystitis, resolved. postop urinary retention, resolved. - HPI History of Present Illness: See surgical consultation by Dr. Cain. - CONSULTS | PROCEDURES Procedures: Laparoscopic cholecystectomy 07/20/19 - HOSPITAL COURSE Hospital Course: Uncomplicated except for the development of postop urinary retention requiring placement of a jama catheter. He had urinary sx preoperatively c/w BPH. Pt was started on tamsulosin and on PO Day # 2, the jama catheter was removed and the patient was able to void spontaneously and bladder scan showed complete emptying after voiding. He was discharged home with the usual postop instructions and only non narcotic analgesics for pain. He will continue tamsulosin as an outpatient and follow up with a urologist. - ALLERGIES Allergies/Adverse Reactions: Allergies Allergy/AdvReac Type Severity Reaction Status Date / Time piperacillin [From Zosyn] Allergy Hives Verified 07/20/19 05:33 tazobactam [From Zosyn] Allergy Hives Verified 07/20/19 05:33 codeine AdvReac Unknown Verified 07/19/19 21:35 - MEDICATIONS Home Medications: Ambulatory Orders Medication Instructions Recorded Confirmed Losartan Potassium 100 mg PO DAILY #30 tablet 05/02/19 07/20/19 Tamsulosin HCl [Flomax] 0.4 mg PO DAILY #30 cap.er.24h 07/22/19 - PHYSICAL EXAM AT DISCHARGE General Appearance: positive: No acute distress, Alert Eyes Bilateral: positive: Normal inspection, No scleral icterus ENT: positive: ENT inspection nml Neck: positive: Nml inspection Respiratory: positive: Chest non-tender, No respiratory distress, Breath sounds nml Abdomen: positive: Tenderness (minimal expected postop tenderness), Other (incisions healing well) Skin: positive: Color nml, No rash, Warm, Dry Extremities: positive: Non-tender, No pedal edema. negative: Calf tenderness Neurologic/Psychiatric: positive: Oriented x3 - LABS Result Diagrams: 07/21/19 05:15 07/21/19 05:15 - FOLLOW UP Follow Up: Dr. Payton in 1-2 weeks; a urologist in 2-3 weeks."
== END 2019-07-22 14:00 | disposition home or self-care (01) ==
LOC: ED 21:33 → SDS 07-20 10:35 → MS2 07-20 11:53
PROVIDERS: ADMIT Surgery; ATTEND Internal Medicine Gastroenterology
PROC: 0FT44ZZ Resection of Gallbladder, Percutaneous Endoscopic Approach (ICD-10-PCS; principal; 2019-07-19)
DX: K80.00 Calculus of gallbladder with acute cholecystitis without obstruction (principal); R33.9 Retention of urine, unspecified; I10 Essential (primary) hypertension; R35.0 Frequency of micturition; T36.0X5A Adverse effect of penicillins, initial encounter; L50.0 Allergic urticaria; Y92.238 Other place in hospital as the place of occurrence of the external cause; Z79.52 Long term (current) use of systemic steroids; Z87.891 Personal history of nicotine dependence; Z87.19 Personal history of other diseases of the digestive system
CPT/HCPCS: 36415; 47562; 76705; 80053; 83690; 85025; 96365; 96367; 96375; 96376; 99284; 99285; A9270; G0378; J0131; J1170; J1200; J3010; J3490; J7120

== ENCOUNTER 2019-08-29 09:13 | Outpatient (CLI) | payer BC ==
[2019-08-29] MEDS ORDERED: IOVERSOL 320 100 ML VIAL IVP ONE (09:21)
[2019-08-29] MEDS ORDERED: IOVERSOL 320 50 ML VIAL ONE (09:21)
--- NOTE | 2019-08-29 15:20 | CT Report ---
Reason: ABD PAIN CHRONIC Procedure Date: 08/29/2019 Accession Number: [id number] / [id number] Procedure: CT - Abdomen/Pelvis WO CPT Code: Final Report FULL RESULT: EXAM: CT ABDOMEN AND PELVIS EXAM DATE: 08/29/2019 09:48 AM. CLINICAL HISTORY: Abdominal pain, chronic. COMPARISONS: ABD/PEL 01/21/2007 4:24 PM. TECHNIQUE: Routine helical CT imaging was performed through the abdomen and pelvis. IV contrast: None. Enteric contrast: No. Reconstructions: Coronal and sagittal. In accordance with CT protocol optimization, one or more of the following dose reduction techniques were utilized for this exam: automated exposure control, adjustment of mA and/or KV based on patient size, or use of iterative reconstructive technique. FINDINGS: Lung Bases: Unremarkable. Liver: Normal. No masses. Gallbladder/Bile Ducts: Status post cholecystectomy. Spleen: Normal. Pancreas: Normal. Adrenal Glands: Normal. Kidneys: Normal. No masses or hydronephrosis. Peritoneal Cavity/Bowel: The patient is status post partial colectomy. There is mild mesenteric misting surrounding the celiac axis, a nonspecific finding. Small prominent scattered mesenteric lymph nodes do not meet size criteria There is no bowel obstruction, free fluid or free air. No lymphadenopathy by size criteria. The appendix is not seen, no inflammatory changes in the pericecal region. Pelvic Organs: Normal. The bladder and visualized pelvic organs are within normal limits. Vasculature: No aneurysms or other significant abnormality. Bones: No significant abnormality. Other: There is a ventral left abdominal wall wound with a soft tissue track which is 4.5 cm deep reaching to the abdominal wall musculature, 4.1 cm wide and 1.8 cm tall. Absence of intravenous contrast precludes evaluation for small abscess hidden within. IMPRESSION: Limited noncontrast study with abdominal wall wound as described. RADIA
== END 2019-08-29 09:14 | disposition home or self-care (01) ==
LOC: DI 09:13
PROVIDERS: ATTEND Surgery
DX: R10.9 Unspecified abdominal pain (principal)
CPT/HCPCS: 74176